=== PATIENT | female | born 1965 | race African-American/Black ===

== ENCOUNTER 2016-07-26 13:50 | Emergency (ER) | payer OTHER ==
[~2016-07-26] VITALS: Ht 170.2 cm; Wt 100.0 kg
[~2016-07-26 13:50] MED LIST: ALBU6.7H INH; CYCL-36 PO; GLUCTAB PO; HYDR-2768 PO; HYDR-3533 PO; IBUP-232 PO; LISI40TA PO; NOVOLOG MIX SQ
[2016-07-26 13:52] VITALS: BP 176/81; PULSE 84; RESP 15; TEMP 98.2; O2SAT 98
[2016-07-26] MEDS ORDERED: GLUCTAB PO (14:44)
[2016-07-26] MEDS ORDERED: AMLO2.5T PO (14:44)
[2016-07-26] MEDS ORDERED: METO25TA3 PO (14:44)
[2016-07-26] MEDS ORDERED: HUMA75IN SQ (14:44)
[2016-07-26] MEDS ORDERED: INSU1.2I SQ (14:44)
[2016-07-26] MEDS ORDERED: CYCL5TAB PO (14:55)
--- NOTE | 2016-07-26 14:55 | PD ---
HPI . right sided shoulder pain for over 1 week Chief Complaint: Pain: Acute or Chronic Time Seen by Provider: 14:29 Travel History International Travel<30 days: No Contact w/Intl Traveler<30days: No Traveled to known affect area: No History of Present Illness HPI 50-year-old female with history of diabetes, hypertension and herniated disc here with complaints of right shoulder pain for one week. Patient says that she has been experiencing right shoulder pain for about one week in duration. The pain is localized deep within the shoulder and is worse with movement. She says sometimes it will radiate around to her breast area and then sometimes back to her neck and down. Today she was having the pain and also had a headache and some blurry vision and decided to come to the emergency department for further evaluation. At time of examination she is only complaining of right shoulder pain with movement. She denies any headache. Her neuro exam is unremarkable. Rotator cuff test were all positive. Her primary care provider is through Dr. Rivera's office, but she is uncertain of the exact name of the provider. She has no other complaints. PFSH Past Medical History High Cholesterol: Yes Diabetes: Yes Diminished Hearing: No Hypertension: Yes Musculoskeletal: Yes (HERNIATED DISC CERVICAL SPINE) Immunizations Current: No : 8 Para: 1 Miscarriage: 7 Dilation and Curettage (D&C): Yes (X3, unknown dates) Past Surgical History Abdominal Surgery: Yes (HERNEA REPAIR) Section: Yes (X1 ) Gynecologic Surgery: Yes ( X 1, ) Other Surgery: Yes (PREVIOUS CERCLAGE;D& C) Social History Alcohol Use: Yes (OCC) Tobacco Use: No Substance Use: No Allergies-Medications (Allergen,Severity, Reaction): Coded Allergies: Lisinopril (Verified Allergy, Severe, Swelling, 07/26/16) Reported Meds & Prescriptions Reported Meds & Active Scripts Active Flexeril (Cyclobenzaprine HCl) 5 Mg Tab 5 Mg PO TID Reported Brii Leeostar Pen Inj (Insulin Glargine) 300 Unit/Ml Pen 1 Units SQ Humalog Mix 75-25 Kwikpen Pen Inj (Insulin Lispro Protamine-Lispro 75-25 Inj) 300 unit/3 ML Pen 1 Units SQ Amlodipine (Amlodipine Besylate) 2.5 Mg Tab 2.5 Mg PO DAILY Glucophage XR (Metformin HCl) 500 Mg Magalie 1,000 Mg PO DAILY With evening meal Metoprolol Tartrate 25 Mg Tab 25 Mg PO BID [Novolog Mix 75/25] 10 Units SQ TIDAC Review of Systems General / Constitutional: No: Fever Eyes: No: Visual changes HENT: No: Headaches Cardiovascular: No: Chest Pain or Discomfort Respiratory: No: Shortness of Breath Gastrointestinal: No: Abdominal Pain Genitourinary: No: Dysuria Musculoskeletal: Positive: Pain (right shoulder pain) Skin: No Rash Neurologic: No: Weakness Psychiatric: No: Depression Endocrine: No: Polydipsia Hematologic/Lymphatic: No: Easy Bruising Physical Exam Narrative GENERAL: AAO x 3, no acute distress, Well-nourished, well-developed patient. very comfortable, resting in bed SKIN: Warm and dry. No visible rashes or bruising. HEAD: Normocephalic and atraumatic. EYES: No scleral icterus. No injection or drainage. EOM intact, PERRLA ENT: No nasal drainage noted. Mucous membranes pink. Airway patent. NECK: Supple, trachea midline. No JVD. No lymphadenopathy CARDIOVASCULAR: Regular rate and rhythm without murmurs, gallops, or rubs. RESPIRATORY: Breath sounds equal bilaterally. No accessory muscle use. No rhonchi or rales. GASTROINTESTINAL: Abdomen soft, non-tender, nondistended. EXTREMITIES: No cyanosis or edema. All rotator cuff tests were positive on right side. She has pain with internal/external rotation the right shoulder. Range of motion is normal. 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 Upper and lower extremity strength 5/5. motor function normal. no focal deficits BACK: Nontender without obvious deformity. No CVA tenderness. PSYCH: AAO x 3, normal affect. Data Data Last Documented VS Vital Signs Date Time Temp Pulse Resp B/P Pulse Ox O2 Delivery O2 Flow Rate FiO2 07/26/16 13:52 98.2 84 15 176/81 98 Orders Electrocardiogram (07/26/16 ) Ibuprofen (Motrin) (07/26/16 15:00) Blood Glucose (07/26/16 14:46) MDM Medical Decision Making Medical Screen Exam Complete: Yes Emergency Medical Condition: Yes Medical Record Reviewed: Yes Differential Diagnosis Possible Rotator cuff injury, shoulder pain possible osteoarthritis, cervical radiculopathy Narrative Course 50-year-old female with history of diabetes, hypertension and herniated disc here with complaints of right shoulder pain for one week. Patient says that she has been experiencing right shoulder pain for about one week in duration. The pain is localized deep within the shoulder and is worse with movement. She says sometimes it will radiate around to her breast area and then sometimes back to her neck and down. Today she was having the pain and also had a headache and some blurry vision and decided to come to the emergency department for further evaluation. At time of examination she is only complaining of right shoulder pain with movement. She denies any headache. Her neuro exam is unremarkable. Rotator cuff test were all positive. Her primary care provider is through Dr. Rivera's office, but she is uncertain of the exact name of the provider. She has no other complaints. Patient seen and examined. Her examination is fairly unremarkable except for positive rotator cuff test on the right side. I explained that imaging with an x-ray is not indicated. I've explained to her that MRI would be the imaging modality of choice. I discussed the rotator cuff muscles with the patient. 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 I've explained that I will provide her with a course of muscle relaxers. I offered some in the emergency department today, however she drove herself here and it will not be a safe discharge if she is administered muscle relaxers. I've advised her that I will provide her with a prescription for muscle relaxers. We discussed side effects of drowsiness. I've advised her to follow-up with her primary care provider for further evaluation and treatment. She may need orthopedist evaluation. Patient verbalized understanding of instructions, questions were answered, and thanked me for their care. I advised them if their condition worsens, please return to the nearest emergency room for further care. Diagnosis Primary Impression: Right shoulder pain Qualified Code: M25.511 - Acute pain of right shoulder Patient Instructions: General Instructions Additional Instructions: Please return to emergency department if your symptoms return or worsen. Follow up with your primary care provider. Take medications as prescribed. Muscle relaxers can cause drowsiness. Do not drive, swim or operate heavy machinery while using these medications. Med/Other Pt SpecificInfo: Prescription(s) given Scripts Cyclobenzaprine (Flexeril)5 Mg Tab5 Mg PO TID #21 TAB Prov:Gutierrez Velasco MD 07/26/16 Disposition: 01 DISCHARGE HOME Condition: Serious Fabiola Cerrato Jul 26, 2016 14:55
[2016-07-26] MEDS ORDERED: IBUPROFEN 800 MG TAB PO ONE (15:00)
--- NOTE | 2016-07-27 11:49 | EKG ---
Date Performed: 07/26/2016 Time Performed: 14:03:54 PTAGE: 50 years EKG: Sinus rhythm NORMAL ECG PREVIOUS TRACING : 02/13/2014 17.19 Compared to prior tracing no significant change DOCTOR: Shaka Briggs Interpretating Date/Time 07/27/2016 11:47:32
== END 2016-07-26 15:19 | disposition home or self-care (01) ==
LOC: NEPD 13:50
DX: M25.511 Pain in right shoulder (principal); M50.20 Other cervical disc displacement, unspecified cervical region; E78.00 Pure hypercholesterolemia, unspecified; E11.9 Type 2 diabetes mellitus without complications; I10 Essential (primary) hypertension
CPT/HCPCS: 93005

== ENCOUNTER 2016-09-17 14:35 | Emergency (ER) | payer OTHER ==
[~2016-09-17] VITALS: Ht 167.6 cm; Wt 90.0 kg
[~2016-09-17 14:35] MED LIST changes: -ALBU6.7H INH; +AMLO2.5T PO; -CYCL-36 PO; +CYCL5TAB PO; +HUMA75IN SQ; -HYDR-2768 PO; -HYDR-3533 PO; -IBUP-232 PO; +INSU1.2I SQ; -LISI40TA PO; +METO25TA3 PO
[2016-09-17 14:37] VITALS: BP 208/90; PULSE 92; RESP 20; TEMP 98.4; O2SAT 99
[2016-09-17] MEDS ORDERED: KETOROLAC TROMETHAMINE 60 MG/2 ML (IM) VIAL IM ONE (15:15)
[2016-09-17] MEDS ORDERED: DICL75TA PO (15:19)
[2016-09-17] MEDS ORDERED: BACL10TA PO (15:19)
--- NOTE | 2016-09-17 15:23 | PD ---
HPI Chief Complaint: Back/ Neck Pain or Injury Time Seen by Provider: 15:08 Travel History International Travel<30 days: No Contact w/Intl Traveler<30days: No Traveled to known affect area: No History of Present Illness HPI 51-year-old female here for evaluation of left-sided posterior neck pain. 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 There is new child yesterday at the patient reports was a lot of work to redirect. She reports since then posterior left-sided neck pain is developed. She reports sharp/throbbing pain which is worse with rotation of her neck. She took some ibuprofen yesterday, didn't take anything today, symptoms persist which prompted evaluation. Denies any headache, blurred vision , chest pain or shortness of breath, nausea or vomiting, numbness or tingling or weakness in the extremities. She has no other complaints. PFSH Past Medical History High Cholesterol: Yes Diabetes: Yes Diminished Hearing: No Hypertension: Yes Musculoskeletal: Yes (HERNIATED DISC CERVICAL SPINE) Immunizations Current: No ?: Not LMP: 14 SEP 2016 : 8 Para: 1 Miscarriage: 7 Dilation and Curettage (D&C): Yes (X3, unknown dates) Past Surgical History Abdominal Surgery: Yes (HERNEA REPAIR) Section: Yes (X1 ) Gynecologic Surgery: Yes ( X 1, ) Other Surgery: Yes (PREVIOUS CERCLAGE;D& C) Social History Alcohol Use: Yes (OCC) Tobacco Use: No Substance Use: No Allergies-Medications (Allergen,Severity, Reaction): Coded Allergies: Lisinopril (Verified Allergy, Severe, Swelling, 09/17/16) Reported Meds & Prescriptions Reported Meds & Active Scripts Active Flexeril (Cyclobenzaprine HCl) 5 Mg Tab 5 Mg PO TID Reported Brii Leeostar Pen Inj (Insulin Glargine) 300 Unit/Ml Pen 1 Units SQ Humalog Mix 75-25 Kwikpen Pen Inj (Insulin Lispro Protamine-Lispro 75-25 Inj) 300 unit/3 ML Pen 1 Units SQ Amlodipine (Amlodipine Besylate) 2.5 Mg Tab 2.5 Mg PO DAILY Glucophage XR (Metformin HCl) 500 Mg Magalie 1,000 Mg PO DAILY With evening meal Metoprolol Tartrate 25 Mg Tab 25 Mg PO BID [Novolog Mix 75/25] 10 Units SQ TIDAC Review of Systems Except as stated in HPI: all other systems reviewed are Neg Physical Exam Narrative GENERAL: Well-nourished female in no acute distress SKIN: Warm and dry. No bruising or soft tissue swelling HEAD: Atraumatic. Normocephalic. EYES: Pupils equal and round. No scleral icterus. No injection or drainage. ENT: No nasal bleeding or discharge. Mucous membranes pink and moist. NECK: Trachea midline. No JVD. No lymphadenopathy or palpable masses. CARDIOVASCULAR: Regular rate and rhythm. No murmur appreciated. RESPIRATORY: No accessory muscle use. Clear to auscultation. Breath sounds equal bilaterally. GASTROINTESTINAL: Abdomen soft, non-tender, nondistended. Hepatic and splenic margins not palpable. MUSCULOSKELETAL: No obvious deformities. Some reproducible tenderness to palpation to the left cervical paravertebral musculature. There is pain with rotation of the neck limits her ability to rotate her neck. NEUROLOGICAL: Awake and alert. No obvious cranial nerve deficits. Motor grossly within normal limits. Normal speech. Data Data Last Documented VS Vital Signs Date Time Temp Pulse Resp B/P Pulse Ox O2 Delivery O2 Flow Rate FiO2 09/17/16 14:37 98.4 92 20 208/90 99 Room Air Orders Ketorolac Inj (Toradol Inj) (09/17/16 15:15) MDM Medical Decision Making Medical Screen Exam Complete: Yes Emergency Medical Condition: Yes Medical Record Reviewed: Yes Differential Diagnosis Cervical strain, spasm, referred cardiac pain, herniated nucleus pulposus, fracture, cervical artery dissection Narrative Course Physical examination and history are consistent with left-sided neck strain. The plan would be to treat her symptomatically with short course of NSAIDs and muscle relaxants. Her blood pressure was incidentally noted to be elevated in triage. She has a history of hypertension hypertension, she takes metoprolol 50 mg BID, losartan/HCTZ 66839, amlodipine 5 mg daily. She forgot to take her medication this morning. She will be taking it shortly after discharge. Diagnosis Primary Impression: Cervical strain, acute Qualified Code: S16.1XXA - Cervical strain, acute, initial encounter Additional Instructions: Medication as needed. Take diclofenac with meals. Do not take ibuprofen/Advil/ Motrin/Aleve/naproxen when taking diclofenac because they are in the same class of medication. Do not drive or drink alcohol when taking baclofen. Avoid strenuous activity. Gentle massages, ice packs, heating pads. Follow-up with primary care physician 1 week. Return for any emergent medical conditions. Med/Other Pt SpecificInfo: Prescription(s) given Scripts Baclofen 10 Mg Tab10 Mg PO Q8HR PRN (MUSCLE SPASM) 7 Days Ref 0 Prov:Evin Galvan MD 09/17/[address] 75 Mg Tabdr75 Mg PO BID 7 Days Ref 0 Prov:Evin Galvan MD 09/17/16 Disposition: 01 DISCHARGE HOME Condition: Stable Bi Fiore Sep 17, 2016 15:23
== END 2016-09-17 15:48 | disposition home or self-care (01) ==
LOC: NEPK 14:35
DX: S16.1XXA Strain of muscle, fascia and tendon at neck level, initial encounter (principal); X50.9XXA Other and unspecified overexertion or strenuous movements or postures, initial encounter; Y93.F9 Activity, other caregiving; Y92.218 Other school as the place of occurrence of the external cause; Y99.0 Civilian activity done for income or pay
CPT/HCPCS: 96372; 99284; J1885

== ENCOUNTER 2017-01-25 14:13 | Emergency (ER) | payer OTHER ==
[~2017-01-25] VITALS: Ht 167.6 cm; Wt 90.0 kg
[~2017-01-25 14:13] MED LIST changes: +BACL10TA PO; +DICL75TA PO
[2017-01-25 14:15] VITALS: BP 162/80; PULSE 90; RESP 14; TEMP 98.8; O2SAT 98
--- NOTE | 2017-01-25 16:12 | PD ---
HPI Chief Complaint: Musculoskeletal Complaint Time Seen by Provider: 16:11 Travel History International Travel<30 days: No Contact w/Intl Traveler<30days: No Traveled to known affect area: No History of Present Illness HPI 51 year-old female presents to the emergency department for evaluation right shoulder pain. Patient had a slip and fall yesterday and landed on her right shoulder. She states since that fall she has been unable to move it without significant pain. Pain is a constant, 6 out of 10. Pain is less intense when she holds her arm across her body. Denies any alterations in sensation or limitations in range of motion. Pain does not radiate anywhere. Did not strike her head or lose consciousness. She has no other symptoms to report. [facility] Past Medical History High Cholesterol: Yes Diabetes: Yes Diminished Hearing: No Hypertension: Yes Musculoskeletal: Yes (HERNIATED DISC CERVICAL SPINE) Immunizations Current: No ?: Unknown : 8 Para: 1 Miscarriage: 7 Dilation and Curettage (D&C): Yes (X3, unknown dates) Past Surgical History Abdominal Surgery: Yes (HERNEA REPAIR) Section: Yes (X1 ) Gynecologic Surgery: Yes ( X 1, ) Other Surgery: Yes (PREVIOUS CERCLAGE;D& C) Social History Alcohol Use: Yes (OCC) Tobacco Use: No Substance Use: No Allergies-Medications (Allergen,Severity, Reaction): Coded Allergies: lisinopril (Unverified Allergy, Severe, Swelling, 11/25/16) Reported Meds & Prescriptions Reported Meds & Active Scripts Active Mobic (Meloxicam) 15 Mg Tab 15 Mg PO DAILY PRN Baclofen 10 Mg Tab 10 Mg PO Q8HR PRN [address] (Diclofenac Sodium) 75 Mg Tabdr 75 Mg PO BID 7 Days Flexeril (Cyclobenzaprine HCl) 5 Mg Tab 5 Mg PO TID Reported Brii Solostar Pen Inj (Insulin Glargine) 300 Unit/Ml Pen 1 Units SQ Humalog Mix 75-25 Kwikpen Pen Inj (Insulin Lispro Protamine-Lispro 75-25 Inj) 300 unit/3 ML Pen 1 Units SQ Amlodipine (Amlodipine Besylate) 2.5 Mg Tab 2.5 Mg PO DAILY Glucophage XR (Metformin HCl) 500 Mg Magalie 1,000 Mg PO DAILY With evening meal Metoprolol Tartrate 25 Mg Tab 25 Mg PO BID [Novolog Mix 75/25] 10 Units SQ TIDAC Review of Systems Except as stated in HPI: all other systems reviewed are Neg Physical Exam Narrative GENERAL: Well-nourished, well-developed female patient, ambulatory no acute distress SKIN: Focused skin assessment warm/dry. HEAD: Normocephalic. Atraumatic EYES: No scleral icterus. No injection or drainage. NECK: Supple, trachea midline. No JVD or lymphadenopathy. CARDIOVASCULAR: Regular rate and rhythm without murmurs, gallops, or rubs. RESPIRATORY: Breath sounds equal bilaterally. No accessory muscle use. GASTROINTESTINAL: Abdomen soft, non-tender, nondistended. MUSCULOSKELETAL: No cyanosis, or edema. Her is elicited to palpation of the anterolateral aspect the right shoulder. No deformity. Patient is reluctant to abduct or raised anteriorly due to pain. Distal pulses are palpable. Cap refill within normal limits. BACK: Nontender without obvious deformity. No CVA tenderness. Data Data Last Documented VS Vital Signs Date Time Temp Pulse Resp B/P (MAP) Pulse Ox O2 Delivery O2 Flow Rate FiO2 01/25/17 17:23 01/25/17 14:15 98.8 90 14 98 Orders Orders Shoulder, Complete (>2vws) (01/25/17 ) Ibuprofen (Motrin) (01/25/17 16:15) Splint Or Brace Apply/Monitor (01/25/17 16:54) Ed Discharge Order (01/25/17 16:56) MDM Medical Decision Making Medical Screen Exam Complete: Yes Emergency Medical Condition: Yes Medical Record Reviewed: Yes Differential Diagnosis Shoulder sprain versus dislocation versus contusion versus fracture Narrative Course 51 year-old female presents to the emergency department for evaluation right shoulder pain. This is following a trip and fall that occurred yesterday. There is no deformity. Patient does report pain over the anterolateral aspect of the right shoulder. Last Impressions Shoulder X-Ray 01/25/17 0000 Signed Impressions: Service Date/Time: Wednesday, January 25, 2017 16:30 - CONCLUSION: 1. Degenerative changes in the acromioclavicular joint. 2. No acute fracture identified. Curly Wilburn MD Findings or discussed with the patient. She is provided a sling and counseled on care. She is encouraged to follow-up with primary care provider and return immediately with any acute worsening symptoms. Diagnosis Primary Impression: Right shoulder pain Qualified Codes: M25.511 - Pain in right shoulder Referrals: Orthopaedic Surgeon Primary Care Physician Patient Instructions: General Instructions, Shoulder Pain (GEN) Additional Instructions: Ice to the affected area 20 minutes on, 20 minutes off Follow-up with primary care provider Take orthopedic evaluation. Outpatient MRI may be warranted Wear sling for support. Do not do this at all times and do range of motion exercises multiple times a day Do not take ibuprofen or other NSAIDs with prescribed pain control Return immediately to the emergency department with any acute worsening of symptoms Med/Other Pt SpecificInfo: Prescription(s) given Scripts Meloxicam (Mobic) 15 Mg Tab 15 MG PO DAILY Y for PAIN SCALE 1 TO 10, #14 TAB 0 Refills Prov: Sandrita Gillespie 01/25/17 Disposition: 01 DISCHARGE HOME Condition: Stable Sandrita Gillespie Jan 25, 2017 16:12
[2017-01-25] MEDS ORDERED: IBUPROFEN 800 MG TAB PO ONE (16:15)
--- NOTE | 2017-01-25 16:47 | RADRPT ---
EXAM DATE/TIME: 01/25/2017 16:30 [facility] COMPARISON: CHEST SINGLE AP, February 13, 2014, 18:40. INDICATIONS : Right anterior shoulder pain, injured catching self from falling MEDICAL HISTORY : Diabetes mellitus type II. Hypercholesterolemia. Hypertension. Herniated disc in cervical spine, SURGICAL HISTORY : section. Dilation and Curettage x 3, right wrist tendons removed ENCOUNTER: Initial ACUITY: 2 days PAIN SCORE: 9/10 LOCATION: Right Shoulder FINDINGS: The humeral head is well situated within the glenoid fossa. There degenerative changes within the a.c. joint. No acute fracture is seen. CONCLUSION: 1. Degenerative changes in the acromioclavicular joint. 2. No acute fracture identified. Curly Wilburn MD on January 25, 2017 at 16:45 Board Certified Radiologist. This report was verified electronically.
[2017-01-25] MEDS ORDERED: MOBI15TA PO (16:56)
== END 2017-01-25 17:24 | disposition home or self-care (01) ==
LOC: NEPK 14:13
DX: M25.511 Pain in right shoulder (principal); E11.9 Type 2 diabetes mellitus without complications; I10 Essential (primary) hypertension; E78.00 Pure hypercholesterolemia, unspecified; W01.0XXA Fall on same level from slipping, tripping and stumbling without subsequent striking against object, initial encounter
CPT/HCPCS: 73030; 99283

== ENCOUNTER 2017-07-19 18:01 | Emergency (ER) | payer OTHER ==
[~2017-07-19] VITALS: Ht 167.6 cm; Wt 93.2 kg
[~2017-07-19 18:01] MED LIST changes: +MOBI15TA PO
[2017-07-19] MEDS ORDERED: IOHEXOL 350 MG/ML 10 ML VIAL (for RAD DIAG) IVCONTRAST ONE (18:02)
[2017-07-19 18:15] VITALS: BP 179/86; PULSE 81; RESP 18; TEMP 99.5; O2SAT 99
--- NOTE | 2017-07-19 18:51 | RADRPT ---
EXAM DATE/TIME: 07/19/2017 18:28 [facility] COMPARISON: No previous studies available for comparison. INDICATIONS : Shortness of breath and bilateral leg swelling. MEDICAL HISTORY : Hypertension. Diabetes. SURGICAL HISTORY : None. ENCOUNTER: Initial ACUITY: 2 weeks PAIN SCORE: 0/10 LOCATION: Bilateral chest FINDINGS: PA and lateral views of the chest demonstrate patchy airspace consolidation right lung base most josey acteristic of bronchopneumonia. Minimal left basilar opacity. No effusion. Elevated right hemidiaphra gm. No pneumothorax. CONCLUSION: 1. Basilar lung consolidation, right greater than left most characteristic of bronchopneumonia. Zack Garcia MD on July 19, 2017 at 18:47 Board Certified Radiologist. This report was verified electronically.
--- NOTE | 2017-07-19 20:55 | PD ---
HPI Chief Complaint: Respiratory Symptoms Time Seen by Provider: 20:49 Travel History International Travel<30 days: No Contact w/Intl Traveler<30days: No Traveled to known affect area: No History of Present Illness HPI The patient is 51 year old female who presents to the [facility] emergency department with a history of cough, congestion, postnasal drip that began 3 weeks ago. She reports that her cough has been productive of clear sputum. She reports having nasal congestion without nasal discharge. She denies having any known fevers. She reports that she was attributing the cough and congestion to allergies and has been taking [id number] medications for it. She reports that over the last 2 days she then noticed swelling in her hands and feet. She reports that this is happened in the past when she was out of her medication, however she has been taking her medications on a regular basis. She reports having shortness of breath with exertion over the last 2-3 weeks. On review of systems otherwise, the patient denies having any neck pain , chest pain, abdominal pain, vomiting, diarrhea, urinary symptoms, or neurologic symptoms. [facility] Past Medical History Narrative Medical The patient's past medical history is significant for hyperlipidemia, diabetes mellitus, hypertension, history of herniated disc in her cervical spine, history of seasonal allergies. Cardiovascular Problems: Yes (HTN) High Cholesterol: Yes Diabetes: Yes Diminished Hearing: No Hypertension: Yes Musculoskeletal: Yes (HERNIATED DISC CERVICAL SPINE) Immunizations Current: No ?: Not : 8 Para: 1 Miscarriage: 7 Dilation and Curettage (D&C): Yes (X3, unknown dates) Past Surgical History Narrative Surgical The patient's past surgical history is significant for hernia repair, , dilation and curettage 3. Abdominal Surgery: Yes (HERNEA REPAIR) Section: Yes (X1 ) Gynecologic Surgery: Yes ( X 1, ) Other Surgery: Yes (PREVIOUS CERCLAGE;D& C) Social History Alcohol Use: Yes (OCC) Tobacco Use: No Substance Use: No Allergies-Medications (Allergen,Severity, Reaction): Coded Allergies: lisinopril (Unverified Allergy, Severe, Swelling, 07/19/17) Reported Meds & Prescriptions Reported Meds & Active Scripts Active Reported Voltaren (Diclofenac Sodium) 1 % Gel..gram. 1 Applic TOPICAL QID PRN Novolog Inj (Insulin Aspart) 1,000 Unit/10 Ml Vial 10 Units SQ TIDAC Tresiba Flextouch Pen Inj (Insulin Degludec Inj) 300 unit/3 ML Pen 50 Units SQ HS [sugar maddy] 1 Cap PO TID Metformin (Metformin HCl) 1,000 Mg Tab 1,000 Mg PO BIDPC Ibuprofen 800 Mg Tab 800 Mg PO Q8H PRN Tradjenta (Linagliptin) 5 Mg Tab 5 Mg PO DAILY Amlodipine (Amlodipine Besylate) 5 Mg Tab 5 Mg PO DAILY Metoprolol Tartrate 100 Mg Tab 50 Mg PO BID Review of Systems Except as stated in HPI: all other systems reviewed are Neg General / Constitutional: No: Fever Eyes: No: Visual changes HENT: Positive: Congestion, No: Headaches Cardiovascular: Positive: Dyspnea on exertion, No: Chest Pain or Discomfort Respiratory: Positive: Cough, Shortness of Breath Gastrointestinal: No: Nausea, Vomiting, Diarrhea, Abdominal Pain Genitourinary: No: Dysuria Musculoskeletal: No: Pain Skin: No Rash Neurologic: No: Weakness, Focal Abnormalities, Change in Mentation, Sensory Disturbance Psychiatric: No: Depression Endocrine: No: Polydipsia Hematologic/Lymphatic: No: Easy Bruising Physical Exam Narrative General: The patient is a well-developed well-nourished female in no acute distress. Head and Neck exam: Head is normocephalic atraumatic. Eyes: EOMI, pupils are equal round and reactive to light. Nose: Midline septum with erythematous edematous nasal mucosa and a clear nasal discharge per Mouth: Dentition unremarkable. Moist mucus membranes. Posterior oropharynx is not erythematous. No tonsillar hypertrophy. Uvula midline. Airway patent. Neck: No palpable lymphadenopathy. No nuchal rigidity. No thyromegaly. Cardiovascular: Regular rate and rhythm without murmurs, gallops, or rubs. No pulse deficit to the extremities on simultaneous auscultation and palpation of her radial artery. Lungs: Decreased breath sounds in bilateral lung bases. No rhonchi, crackles, or wheezing. She has an occasional dry cough on exam. Abdomen: Soft, without tenderness to palpation in all 4 quadrants of the abdomen. No guarding, rebound, or rigidity. Normal bowel sounds are audible. No tenderness on palpation of McBurney's point. Extremities: No clubbing, cyanosis, or edema. 2+ pulses in all 4 extremities. No calf tenderness on palpation. Back: No spinous process tenderness to palpation. No costovertebral angle tenderness to palpation. Neurologic Exam: Grossly nonfocal. Skin Exam: No rash noted. Intact skin that is warm and dry. Data Data Last Documented VS Vital Signs Date Time Temp Pulse Resp B/P (MAP) Pulse Ox O2 Delivery O2 Flow Rate FiO2 07/19/17 22:07 83 18 140/88 (105) 99 Room Air 07/19/17 18:15 99.5 Orders Orders Complete Blood Count With Diff (07/19/17 18:17) Basic Metabolic Panel (Bmp) (07/19/17 18:17) B-Type Natriuretic Peptide (07/19/17 18:17) Magnesium (Mg) (07/19/17 18:17) Ckmb (Isoenzyme) Profile (07/19/17 18:17) Troponin I (07/19/17 18:17) Chest, Pa & Lat (07/19/17 18:17) Blood Culture (07/19/17 20:55) Ceftriaxone Inj (Rocephin Inj) (07/19/17 21:00) Azithromycin Inj (Zithromax Inj) (07/19/17 21:00) Potassium Chloride (Kcl) (07/19/17 23:00) Magnesium Oxide (Mag-Ox) (07/19/17 23:00) CKMB (07/19/17 21:45) CKMB% (07/19/17 21:45) Ct Pulmonary Angiogram (07/19/17 23:26) Thyroid Stimulating Hormone (07/19/17 21:45) Ondansetron Inj (Zofran Inj) (07/19/17 23:45) Iohexol 350 Inj (Omnipaque 350 Inj) (07/19/17 18:02) Ed Discharge Order (07/20/17 02:07) Labs Laboratory Tests Test 07/19/17 21:45 White Blood Count 7.7 TH/MM3 Red Blood Count 4.35 MIL/MM3 Hemoglobin 12.2 GM/DL Hematocrit 36.8 % Mean Corpuscular Volume 84.6 FL Mean Corpuscular Hemoglobin 28.0 PG Mean Corpuscular Hemoglobin Concent 33.0 % Red Cell Distribution Width 14.4 % Platelet Count 169 TH/MM3 Mean Platelet Volume 9.9 FL Neutrophils (%) (Auto) 66.2 % Lymphocytes (%) (Auto) 21.6 % Monocytes (%) (Auto) 10.8 % Eosinophils (%) (Auto) 1.0 % Basophils (%) (Auto) 0.4 % Neutrophils # (Auto) 5.1 TH/MM3 Lymphocytes # (Auto) 1.7 TH/MM3 Monocytes # (Auto) 0.8 TH/MM3 Eosinophils # (Auto) 0.1 TH/MM3 Basophils # (Auto) 0.0 TH/MM3 CBC Comment DIFF FINAL Differential Comment Blood Urea Nitrogen 9 MG/DL Creatinine 0.71 MG/DL Random Glucose 161 MG/DL Calcium Level 8.4 MG/DL Magnesium Level 1.6 MG/DL Sodium Level 140 MEQ/L Potassium Level 3.4 MEQ/L Chloride Level 106 MEQ/L Carbon Dioxide Level 27.6 MEQ/L Anion Gap 6 MEQ/L Estimat Glomerular Filtration Rate 106 ML/MIN Total Creatine Kinase 196 U/L Creatine Kinase MB 2.2 NG/ML Creatine Kinase MB % 1.1 % Troponin I LESS THAN 0.02 NG/ML B-Type Natriuretic Peptide 20 PG/ML Thyroid Stimulating Hormone 3rd Gen 0.996 uIU/ML MDM Medical Decision Making Medical Screen Exam Complete: Yes Emergency Medical Condition: Yes Medical Record Reviewed: Yes Interpretation(s) Last Impressions Chest X-Ray 07/19/171816 Signed Impressions: Service Date/Time: Wednesday, July 19, 2017 18:28 - CONCLUSION: 1. Basilar lung consolidation, right greater than left most characteristic of bronchopneumonia. Zack Garcia MD Differential Diagnosis Hypoalbuminemia, versus hypothyroid disorder, versus congestive heart failure, versus renal failure Narrative Course During the course of the patient's emergency department visit, the patient's history, examination, and differential diagnosis were reviewed with the patient. The patient was placed on a director of cardiac rehabilitation with oximetry and frequent blood pressure monitoring. The patient had IV access obtained and blood work sent for analysis. The patient's laboratory studies were reviewed and remarkable for 2, platelets 169 with monocytes 10.8. basic metabolic profile is remarkable for a potassium of 3.4 which was supplemented orally along with magnesium oxide supplemented orally, magnesium level 1.6, glucose 161, calcium 8.4, CPK 196, troponin I less than 0.02, BNP 20. Radiology studies were reviewed and remarkable for a chest x-ray shows basilar lung consolidation right greater than the left most characteristic of bronchopneumonia. Blood cultures 2 were ordered. The patient was started on Rocephin 1 g IV, Zithromax 500 IV. CTA to rule out PE was ordered. CTA to rule out PE shows no evidence of pulmonary embolism. Right middle lobe infiltrate/pneumonia is noted. The patient has remained comfortable throughout her emergency department evaluation. Vital signs have been stable with no supplemental oxygen requirements. The patient will be discharged home with a prescription for Ceftin and Zithromax with close follow-up with her primary care physician. The patient is resting comfortably and feels better, is alert and in no distress. The patient's results and examination findings were discussed with the patient. The repeat examination is unremarkable and benign. The history, exam, diagnostic testing, and current condition do not suggest any significant pathology to warrant further testing, continued ED treatment, admission, or surgical evaluation at this point. The vital signs have been stable. The patient does not have uncontrollable pain, intractable vomiting, or other significant symptoms. The patient's condition is stable and appropriate for discharge. The patient will pursue further outpatient evaluation with a primary care physician or other designated or consulting physician as indicated in the discharge instructions. The patient expressed understanding and was agreeable with this plan. Diagnosis Primary Impression: Pneumonia Qualified Codes: J18.1 - Lobar pneumonia, unspecified organism Referrals: Primary Care Physician 1 day Patient Instructions: Community Acquired Pneumonia (ED), General Instructions Med/Other Pt SpecificInfo: Prescription(s) given Disposition: 01 DISCHARGE HOME Condition: Stable Nayeli Mcgee MD Jul 19, 2017 20:54
[2017-07-19] MEDS ORDERED: cefTRIAXone INJ 1,000 MG in SODIUM CHLORIDE 0.9% INJ 100 ML IV ONE (21:00)
[2017-07-19] MEDS ORDERED: AZITHROMYCIN INJ 500 MG in SODIUM CHLOR 0.9% 250 ML INJ 250 ML IV ONE (21:00)
[2017-07-19] MEDS ORDERED: IBUP1TAB7 PO (21:18)
[2017-07-19] MEDS ORDERED: AMLO5TAB2 PO (21:18)
[2017-07-19] MEDS ORDERED: sugar blocker PO (21:18)
[2017-07-19] MEDS ORDERED: TRAD5TAB PO (21:18)
[2017-07-19] MEDS ORDERED: METO100T PO (21:18)
[2017-07-19] MEDS ORDERED: METF1000 PO (21:18)
[2017-07-19] MEDS ORDERED: INSU1INJ14 SQ (21:18)
[2017-07-19] MEDS ORDERED: NOVOLOGP2 SQ (21:18)
[2017-07-19] MEDS ORDERED: VOLT1GEL16 TOPICAL (21:20)
[2017-07-19 22:07] VITALS: BP 140/88; PULSE 83; RESP 18; O2SAT 99
[2017-07-19 22:26] LABS: AUTOMATED NEUTROPHIL # 5.1 TH/MM3 (1.8-7.7); BASOPHIL % 0.4 % (0.0-2.0); EOSINOPHIL # 0.1 TH/MM3 (0-0.4); HEMATOCRIT 36.8 % (35.0-46.0); HEMOGLOBIN 12.2 GM/DL (11.6-15.3); LYMPH % 21.6 % (9.0-44.0); LYMPHOCYTE # 1.7 TH/MM3 (1.0-4.8); MEAN CELL VOLUME 84.6 FL (80.0-100.0); MEAN PLATELET VOLUME 9.9 FL (7.0-11.0); MONO % 10.8 % (0.0-8.0); MONOCYTE # 0.8 TH/MM3 (0-0.9); NEUT % 66.2 % (16.0-70.0); PLATELET COUNT 169 TH/MM3 (150-450); RED BLOOD COUNT 4.35 MIL/MM3 (4.00-5.30); RED CELL DISTRIBUTION WIDTH 14.4 % (11.6-17.2); WHITE BLOOD COUNT 7.7 TH/MM3 (4.0-11.0)
[2017-07-19 22:46] LABS: BICARBONATE 27.6 MEQ/L (21.0-32.0); BLOOD UREA NITROGEN 9 MG/DL (7-18); CALCIUM 8.4 MG/DL (8.5-10.1); CHLORIDE 106 MEQ/L (98-107); CREATININE 0.71 MG/DL (0.50-1.00); GLOMERULAR FILTRATION RATE 106 ML/MIN (>89); GLUCOSE,RANDOM 161 MG/DL (74-106); MAGNESIUM 1.6 MG/DL (1.5-2.5); SODIUM (NA) 140 MEQ/L (136-145)
[2017-07-19 22:50] LABS: TROPONIN I LESS THAN 0.02 NG/ML (0.02-0.05)
[2017-07-19] MEDS ORDERED: POTASSIUM CHLORIDE 10 MEQ CAP PO ONE (23:00)
[2017-07-19] MEDS ORDERED: MAGNESIUM OXIDE 400 MG TAB PO ONE (23:00)
[2017-07-19] MEDS ORDERED: ONDANSETRON HCL 4 MG/2 ML VIAL IV ONE (23:45)
--- NOTE | 2017-07-20 02:02 | RADRPT ---
EXAM DATE/TIME: 07/20/2017 01:45 [place] COMPARISON: CHEST PA & LAT, July 19, 2017, 18:28. INDICATIONS : Shortness of breath with foot swelling. IV CONTRAST: 70 cc Omnipaque 350 (iohexol) IV RADIATION DOSE: 10.56 CTDIvol (mGy) MEDICAL HISTORY : Hypertension. Diabetes mellitus type 2. SURGICAL HISTORY : Hernia repair ENCOUNTER: Initial ACUITY: 1 day PAIN SCALE: 0/10 LOCATION: chest TECHNIQUE: Volumetric scanning of the chest was performed using a pulmonary embolism protocol MIP images were re constructed. Using automated exposure control and adjustment of the mA and/or kV according to patien t size, radiation dose was kept as low as reasonably achievable to obtain optimal diagnostic quality images. DICOM format image data is available electronically for review and comparison. Follow-up recommendations for detected pulmonary nodules are based at a minimum on nodule size and pa tient risk factors according to Fleischner Society Guidelines. FINDINGS: PULMONARY ARTERIES: No filling defects are seen in the pulmonary arteries through the segmental level. LUNGS: There is right middle lobe consolidation without pneumothorax . No concerning pulmonary nodule is vi sualized. PLEURAE: There is no pleural thickening or pleural effusion. MEDIASTINUM: There is good visualization of the great vessels of the middle mediastinum. No evidence of mediastin al or hilar adenopathy/mass. MUSCULOSKELETAL: Within normal limits for patient age. MISCELLANEOUS: The visualized upper abdominal organs demonstrate no acute abnormality. CONCLUSION: 1. Right middle lobe pneumonia. 2. No evidence for pulmonary embolism. Hugo Mcmahon MD on July 20, 2017 at 2:00 Board Certified Radiologist. This report was verified electronically.
[2017-07-20] MEDS ORDERED: ALBUAER3 INH (02:09)
[2017-07-20] MEDS ORDERED: ZITH250T PO (02:09)
[2017-07-20] MEDS ORDERED: CEFU1TAB20 PO (02:09)
== END 2017-07-20 03:05 | disposition home or self-care (01) ==
LOC: NEPC 18:01
DX: J18.1 Lobar pneumonia, unspecified organism (principal); E11.9 Type 2 diabetes mellitus without complications; I10 Essential (primary) hypertension; R06.02 Shortness of breath; Z79.4 Long term (current) use of insulin; Z79.899 Other long term (current) drug therapy
CPT/HCPCS: 71046; 71275; 80048; 82550; 82552; 83735; 83880; 84443; 84484; 85025; 87040; 96374; 96375; 99285; J0456; J0696; J2405; J7050; Q9967

== ENCOUNTER 2017-09-22 00:45 | Emergency (ER) | payer SELFPAY ==
[~2017-09-22] VITALS: Ht 167.6 cm; Wt 91.0 kg
[~2017-09-22 00:45] MED LIST changes: +ALBUAER3 INH; -AMLO2.5T PO; +AMLO5TAB2 PO; -BACL10TA PO; +CEFU1TAB20 PO; -CYCL5TAB PO; -DICL75TA PO; -GLUCTAB PO; -HUMA75IN SQ; +IBUP1TAB7 PO; -INSU1.2I SQ; +INSU1INJ14 SQ; +METF1000 PO; +METO100T PO; -METO25TA3 PO; -MOBI15TA PO; -NOVOLOG MIX SQ; +NOVOLOGP2 SQ; +TRAD5TAB PO; +VOLT1GEL16 TOPICAL; +ZITH250T PO; +sugar blocker PO
[2017-09-22 00:49] VITALS: BP 173/80; PULSE 93; RESP 16; TEMP 98.1; O2SAT 100
[2017-09-22] MEDS ORDERED: DICL75TA PO (01:09)
--- NOTE | 2017-09-22 01:14 | PD ---
HPI Chief Complaint: Injury Time Seen by Provider: 01:01 Travel History International Travel<30 days: No Contact w/Intl Traveler<30days: No Traveled to known affect area: No History of Present Illness HPI 52-year-old right-hand dominant black female presents emergency department with complaints of right shoulder pain. She states that her right shoulder started hurting the last 24 hours. She denies any direct trauma or injury. She states the pain appears to be more anterior shoulder. Worse with raising her hand up over her head. Some relief with holding her arm against her body. She denies any prior shoulder problems. [facility] Past Medical History Narrative Medical Diabetes, hypercholesterolemia, hypertension, degenerative disc disease Cardiovascular Problems: Yes (HTN) High Cholesterol: Yes Diabetes: Yes Patient Takes Glucophage: Yes Diminished Hearing: No Hypertension: Yes Musculoskeletal: Yes (HERNIATED DISC CERVICAL SPINE) Immunizations Current: No Tetanus Vaccination: > 5 Years Influenza Vaccination: Yes ?: Not LMP: LAST WEEK : 8 Para: 1 Miscarriage: 7 Dilation and Curettage (D&C): Yes (X3, unknown dates) Past Surgical History Abdominal Surgery: Yes (HERNEA REPAIR) Section: Yes (X1 ) Gynecologic Surgery: Yes (PREVIOUS CERCLAGE) Other Surgery: Yes (PREVIOUS CERCLAGE;D& C) Social History Alcohol Use: Yes (OCC) Tobacco Use: No Substance Use: No Allergies-Medications (Allergen,Severity, Reaction): Coded Allergies: lisinopril (Unverified Allergy, Severe, Swelling, 09/22/17) Reported Meds & Prescriptions Reported Meds & Active Scripts Active Diclofenac Sodium DR (Diclofenac Sodium) 75 Mg Tabdr 75 Mg PO BID Proair Hfa 8.5 GM Inh (Albuterol Sulfate) 90 Mcg/Act Aer 2 Puff INH Q4-6H PRN 108 mcg/actuation Reported Voltaren (Diclofenac Sodium) 1 % Gel..gram. 1 Applic TOPICAL QID PRN Novolog Inj (Insulin Aspart) 1,000 Unit/10 Ml Vial 10 Units SQ TIDAC Tresiba Flextouch Pen Inj (Insulin Degludec Inj) 300 unit/3 ML Pen 50 Units SQ HS [sugar maddy] 1 Cap PO TID Metformin (Metformin HCl) 1,000 Mg Tab 1,000 Mg PO BIDPC Tradjenta (Linagliptin) 5 Mg Tab 5 Mg PO DAILY Amlodipine (Amlodipine Besylate) 5 Mg Tab 5 Mg PO DAILY Metoprolol Tartrate 100 Mg Tab 50 Mg PO BID Review of Systems General / Constitutional: No: Fever Eyes: No: Visual changes HENT: No: Headaches Cardiovascular: No: Chest Pain or Discomfort Respiratory: No: Shortness of Breath Gastrointestinal: No: Abdominal Pain Genitourinary: No: Dysuria Musculoskeletal: Positive: Arthralgias, Limited ROM, Pain Skin: No Rash Neurologic: No: Weakness Psychiatric: No: Depression Endocrine: No: Polydipsia Hematologic/Lymphatic: No: Easy Bruising Physical Exam Narrative GENERAL: Well-developed, well-nourished in no acute distress. Nontoxic appearing. HEAD: Normocephalic, atraumatic. EYES: Pupils equal round and reactive. Extraocular motions intact. No scleral icterus. No injection or drainage. ENT: TMs clear without erythema. The external auditory canals clear. Nose: clear . Posterior pharynx is pink and moist. No tonsillar edema or exudate. Uvula midline. Airway patent. NECK: Trachea midline.Supple, nontender, moves head freely. No central bony tenderness or spasm. CARDIOVASCULAR: Regular rate and rhythm without murmurs, gallops, or rubs. RESPIRATORY: Clear to auscultation. Breath sounds equal bilaterally. No wheezes , rales, or rhonchi. GASTROINTESTINAL: Abdomen soft, non-tender, nondistended. No hepato-splenomegaly , or palpable masses. No guarding. EXTREMITIES: No clubbing, cyanosis, or edema. Examination of the right upper extremity reveals pain to the anterior component of the shoulder and the anterior glenohumeral joint. She has a positive apprehension test. Decreased range of motion due to pain. No erythema, warmth or edema. Negative drop test. Intact median/ulnar/radial nerves. BACK: Nontender without deformity or crepitance. No flank tenderness. Data Data Last Documented VS Vital Signs Date Time Temp Pulse Resp B/P (MAP) Pulse Ox O2 Delivery O2 Flow Rate FiO2 09/22/17 00:49 98.1 93 16 173/80 (111) 100 Orders Orders Acetamin-Hydrocod 325-5 Mg ([place]mart 5-325 (09/22/17 01:15) Naproxen (Naprosyn) (09/22/17 01:15) Ed Discharge Order (09/22/17 01:08) [facility] Medical Decision Making Medical Screen Exam Complete: Yes Emergency Medical Condition: Yes Medical Record Reviewed: Yes Differential Diagnosis MDM: High Differential diagnoses: Fracture, sprain, strain, dislocation, contusion, neurovascular injury, tendinitis, impingement syndrome Narrative Course Patient is given Rockmart 5 mg p.o. and Naprosyn 500 mg p.o. This isRight shoulder tendinitis/impingement syndrome Diagnosis Primary Impression: Impingement syndrome of right shoulder Additional Impression: Right shoulder tendinitis Patient Instructions: General Instructions Additional Instructions: Rest. Range of motion exercises. Ice for any acute swelling and pain. Diclofenac. Follow-up with your doctor for physical therapy. Return to the ER for emergencies. Med/Other Pt SpecificInfo: Prescription(s) given Scripts Diclofenac Sodium DR (Diclofenac Sodium DR) 75 Mg Tabdr 75 MG PO BID, #30 TAB 0 Refills Prov: Evin Galvan MD 09/22/17 Disposition: 01 DISCHARGE HOME Condition: Stable Zack Tucker Sep 22, 2017 01:14
[2017-09-22] MEDS ORDERED: NAPROXEN 500 MG TAB PO ONE (01:15)
[2017-09-22] MEDS ORDERED: ACETAMINOPHEN/HYDROcodone 325 MG/5 MG TAB PO ONE (01:15)
== END 2017-09-22 01:28 | disposition home or self-care (01) ==
LOC: NEPD 00:45
DX: M75.41 Impingement syndrome of right shoulder (principal); M75.91 Shoulder lesion, unspecified, right shoulder; E11.9 Type 2 diabetes mellitus without complications; I10 Essential (primary) hypertension; E78.00 Pure hypercholesterolemia, unspecified; Z79.4 Long term (current) use of insulin; Z87.39 Personal history of other diseases of the musculoskeletal system and connective tissue
CPT/HCPCS: 99283